=== PATIENT | female | born 2000 | race African-American/Black ===

== ENCOUNTER 2021-07-18 07:09 | Emergency (ER) | payer OTHER ==
[2021-07-19 01:29] LABS: SARS-CoV-2 PCR by NAA Not Detected (NotDetected)
== END 2021-07-18 07:35 | disposition home or self-care (01) ==
LOC: CSHERS 07:09
DX: O99.519 Diseases of the respiratory system complicating pregnancy, unspecified trimester (principal); J02.9 Acute pharyngitis, unspecified; J34.89 Other specified disorders of nose and nasal sinuses; Z3A.00 Weeks of gestation of pregnancy not specified; Z20.822 Contact with and (suspected) exposure to COVID-19
CPT/HCPCS: 99283; U0003; U0005

== ENCOUNTER 2021-12-23 06:59 | Day surgery (SDC) | payer OTHER ==
[2021-12-23] MEDS ORDERED: hydrALAZINE 20 MG/ML VIAL SLOW IVP PRN ×2 (07:43→15:14)
[2021-12-23 07:47] VITALS: BMI 37.8
[2021-12-23 09:12] LABS: SARS-CoV-2 NAA Rapid Test DETECTED (NotDetected)
[2021-12-23] MEDS ORDERED: Acetaminophen 500 MG TAB PO SCH (10:15)
[2021-12-23] MEDS ORDERED: NIFEdipine XL 30 MG TAB PO SCH (10:15)
[2021-12-23 10:22] VITALS: BP 138/83
[2021-12-23] MEDS ORDERED: Promethazine HCl 25 MG/ML VIAL IM PRN (15:14)
[2021-12-23] MEDS ORDERED: Ondansetron PF 4 MG/2 ML Vial IVP PRN (15:14)
[2021-12-23] MEDS ORDERED: Lactated Ringer's 1,000 ML IV SCH ×2 (15:15)
[2021-12-23 15:49] LABS: Hemoglobin 10.8 g/dL (12.0-15.5); Mean Corpuscular Hemoglobin 29.8 pg (27.0-33.0); Mean Corpuscular Volume 87.6 fl (81.6-98.3); Mean Platelet Volume 9.2 fl (7.4-10.4); Platelet Count 293 10x3/uL (150-450); RBC Distribution Width 13.2 % (11.5-14.5); Red Blood Cell (RBC) Count 3.63 10x6/uL (3.90-5.03); White Blood Cell (WBC) Count 6.1 10x3/uL (3.5-10.5)
[2021-12-24] MEDS ORDERED: NIFEdipine XL 30 MG TAB PO SCH (09:00)
== END 2021-12-23 16:40 | disposition home or self-care (01) ==
LOC: CSHLD/OP 06:59
PROVIDERS: ATTEND Obstetrics & Gynecology
DX: O16.3 Unspecified maternal hypertension, third trimester (principal); O98.513 Other viral diseases complicating pregnancy, third trimester; U07.1 COVID-19; Z3A.30 30 weeks gestation of pregnancy; Z79.899 Other long term (current) drug therapy
CPT/HCPCS: 0240U; 76819; 85027; 86850; 86900; 86901

== ENCOUNTER 2022-07-29 16:48 | Emergency (ER) | payer BC, OTHER | END 2022-07-29 18:18 | disposition home or self-care (01) | LOC: CSHERS 16:48 | DX: H65.192 Other acute nonsuppurative otitis media, left ear (principal) | CPT/HCPCS: 99282 ==

== ENCOUNTER 2022-08-13 22:53 | Emergency (ER) | payer OTHER ==
[2022-08-14 01:12] LABS: Bilirubin Neg (Negative); Blood, Urine 150 (Negative); Glucose, Urine (Dipstick) Normal (Negative); Ketone, Urine Negative (Negative); Leukocyte Negative (Negative); Nitrite Negative (Negative); Protein, Urine (Dipstick) 15 mg/dl (Neg-Trace); Urobilinogen Normal mg/dL (Less than 2)
[2022-08-14 01:14] LABS: Pregnancy Test - Urine (BHCG) Negative (Negative); Pregu Control Background? CLEAR/WHITE (CLR/WHITE); Pregu Control Bar Appear? YES (CONTROL BAR)
[2022-08-14 01:25] LABS: WBC/HPF 0-3 HPF (0-3)
[2022-08-14 01:26] LABS: Bacteria/HPF Rare-Few HPF (None Seen)
[2022-08-14] MEDS ORDERED: Ibuprofen 200 MG TAB ONE (01:36)
== END 2022-08-14 01:30 | disposition home or self-care (01) ==
LOC: CSHERS 22:53
DX: N94.6 Dysmenorrhea, unspecified (principal)
CPT/HCPCS: 81003; 81015; 81025; 99284

== ENCOUNTER 2022-09-15 17:49 | Emergency (ER) | payer OTHER ==
[2022-09-15 19:50] LABS: Bilirubin Neg (Negative); Blood, Urine Negative (Negative); Clarity Sl. Cloudy (Clear); Glucose, Urine (Dipstick) Normal (Negative); Ketone, Urine 5 mg/dL (Negative); Leukocyte 25 (Negative); Nitrite Negative (Negative); Protein, Urine (Dipstick) 30 mg/dl (Neg-Trace); Specific Gravity, Urine 1.025 (1.005-1.030)
[2022-09-15 19:51] LABS: Pregnancy Test - Urine (BHCG) POSITIVE (Negative); Pregu Control Background? CLEAR/WHITE (CLR/WHITE); Pregu Control Bar Appear? YES (CONTROL BAR); Specific Gravity 1.025 (1.002-1.036)
[2022-09-15 19:52] LABS: Urine Culture Reflex No No
[2022-09-15 19:58] LABS: RBC/HPF None Seen HPF (0-3)
[2022-09-15 19:59] LABS: Bacteria/HPF 4+ HPF (None Seen); Squamous Epithelial 21-50 HPF (0-3); WBC/HPF 0-3 HPF (0-3)
== END 2022-09-15 21:20 | disposition home or self-care (01) ==
LOC: CSHERS 17:49
DX: R10.31 Right lower quadrant pain (principal); Z33.1 Pregnant state, incidental
CPT/HCPCS: 81001; 81025; 99284

== ENCOUNTER 2022-12-15 09:22 | Emergency (ER) | payer OTHER | END 2022-12-15 11:20 | disposition home or self-care (01) | LOC: CSHERS 09:22 | DX: O98.512 Other viral diseases complicating pregnancy, second trimester (principal); B34.9 Viral infection, unspecified; Z20.822 Contact with and (suspected) exposure to COVID-19; Z3A.17 17 weeks gestation of pregnancy | CPT/HCPCS: 99283; U0003; U0005 ==

== ENCOUNTER 2024-08-22 11:01 | Emergency (ER) | payer SELFPAY ==
[2024-08-22 11:24] LABS: #Basophils 0.04 10x3/uL (0.0-0.2); #Eosinphils 0.04 10x3/uL (0.0-0.5); #Monocytes 0.62 10x3/uL (0.0-1.1); #Neutrophils 4.83 10x3/uL (1.5-8.4); %Basophils 0.4 % (0.0-2.0); %Eosinophils 0.4 % (0.0-6.0); %Lymphocytes 39.8 % (18.0-47.0); %Monocytes 6.7 % (0.0-10.0); %Neutrophils 52.3 % (40.0-75.0); Hemoglobin 13.2 g/dL (12.0-15.5); Mean Corpuscular HGB CONC 33.8 g/dL (32.0-36.0); Mean Corpuscular Hemoglobin 30.6 pg (27.0-33.0); Mean Corpuscular Volume 90.5 fL (81.6-98.3); Mean Platelet Volume 8.9 fL (7.4-10.4); Platelet Count 359 10x3/uL (150-450); RBC Distribution Width 12.8 % (11.5-14.5); Red Blood Cell (RBC) Count 4.31 10x6/uL (3.90-5.03); White Blood Cell (WBC) Count 9.3 10x3/uL (3.5-10.5)
[2024-08-22 11:34] LABS: Bilirubin Neg (Negative); Blood, Urine 10 (Negative); Clarity Clear (Clear); Glucose, Urine (Dipstick) Normal (Negative); Ketone, Urine Negative (Negative); Leukocyte Negative (Negative); Nitrite Negative (Negative); Protein, Urine (Dipstick) Negative (Neg-Trace); Urobilinogen Normal mg/dL (Less than 2)
[2024-08-22 11:36] LABS: ALT (SGPT) 15 U/L (8-55); AST (SGOT) 15 U/L (5-34); Albumin 3.7 g/dL (3.5-5.0); Alkaline Phosphatase 71 U/L (40-110); Anion Gap 13 mmol/L (10-20); BUN (Urea Nitrogen) 13 mg/dL (7.0-18.7); Bilirubin, Total 0.4 mg/dL (0.2-1.2); Calc. Creatinine Clearance 0 mL/min (70-130); Calcium 9.7 mg/dL (7.8-10.44); Carbon Dioxide 22 mmol/L (22-29); Chloride 105 mmol/L (98-107); Estimated GFR 112; Globulin 3.7 g/dL (2.4-3.5); Glucose 97 mg/dL (70-105); Potassium 3.6 mmol/L (3.5-5.1); Protein, Total 7.4 g/dL (6.0-8.3); Sodium 136 mmol/L (136-145)
[2024-08-22 11:50] LABS: CAUTI Indications for Culture Pelvic or flank pain; WBC/HPF None Seen HPF (0-3)
[2024-08-22 11:51] LABS: Bacteria/HPF Rare-Few HPF (None Seen); Urine Culture Reflex No No
== END 2024-08-22 14:10 | disposition home or self-care (01) ==
LOC: CSHERS 11:01
DX: O99.891 Other specified diseases and conditions complicating pregnancy (principal); R10.30 Lower abdominal pain, unspecified; Z3A.01 Less than 8 weeks gestation of pregnancy; Z55.6 Problems related to health literacy
CPT/HCPCS: 76856; 80053; 81001; 84702; 85025